=== PATIENT | female | born 1970 | race Caucasian/White ===

== ENCOUNTER 2017-03-25 12:22 | Emergency (ER) | payer SELFPAY ==
--- NOTE | 2017-03-25 13:33 | UC ---
Throat Pain/Nasal Kevin HPI - HPI Summary HPI Summary: ONE WEEK SINUS PRESSURE, PAIN, FACIAL PRESSURE, HEADACHE, SORE THROAT, COUGH - History of Current Complaint Chief Complaint: UCRespiratory Stated Complaint: RESP COMPLAINT Time Seen by Provider: 03/25/17 12:39 Hx Obtained From: Patient Onset/Duration: Gradual Onset, Lasting Weeks, Still Present Severity: Moderate Pain Intensity: 3 Pain Scale Used: 0-10 Numeric Cough: None Associated Signs & Symptoms: Positive: Hoarseness, Sinus Discomfort, Nasal Discharge - Epiglottits Risk Factors Epiglottis Risk Factors: Negative - Allergies/Home Medications Allergies/Adverse Reactions: Allergies Allergy/AdvReac Type Severity Reaction Status Date / Time No Known Allergies Allergy Verified 03/25/17 12:36 Home Medications: Home Medications Minocycline (NF) 50 mg PO DAILY 03/25/17 [History Confirmed 03/25/17] Sertraline* [Zoloft*] 125 mg PO DAILY 03/25/17 [History Confirmed 03/25/17] PMH/Surg Hx/FS Hx/Imm Hx Previously Healthy: Yes - Surgical History Surgical History: Yes Surgery Procedure, Year, and Place: ablasion, knee surgery - Family History Known Family History: Negative: Respiratory Disease - Social History Occupation: Employed Full-time Lives: With Family Alcohol Use: Occasionally Substance Use Type: None Smoking Status (MU): Never Smoked Tobacco Review of Systems Constitutional: Negative Skin: Negative Eyes: Negative ENT: Sore Throat, Sinus Congestion, Sinus Pain/Tenderness Respiratory: Cough Cardiovascular: Negative Gastrointestinal: Negative Genitourinary: Negative Motor: Negative Neurovascular: Negative Musculoskeletal: Negative Neurological: Negative Psychological: Negative All Other Systems Reviewed And Are Negative: Yes Physical Exam Triage Information Reviewed: Yes Appearance: Well-Appearing, No Pain Distress, Well-Nourished Vital Signs: Initial Vital Signs Temp 98.4 F 03/25/17 12:31 Pulse 57 03/25/17 12:31 Resp 18 03/25/17 12:31 BP 96/66 03/25/17 12:31 Pulse Ox 100 03/25/17 12:31 Vital Signs Reviewed: Yes Eye Exam: Normal ENT: Positive: Pharyngeal erythema, TM bulging, TM dull Dental Exam: Normal Neck exam: Normal Neck: Positive: Supple, Nontender, No Lymphadenopathy Respiratory Exam: Normal Respiratory: Positive: Chest non-tender, Lungs clear, Normal breath sounds, No respiratory distress, No accessory muscle use Cardiovascular Exam: Normal Cardiovascular: Positive: RRR, No Murmur, Pulses Normal Abdominal Exam: Normal Musculoskeletal Exam: Normal Musculoskeletal: Positive: Strength Intact, ROM Intact Neurological Exam: Normal Psychological Exam: Normal Skin Exam: Normal Throat Pain/Nasal Course/Dx - Differential Dx/Diagnosis Differential Diagnosis/HQI/PQRI: Pharyngitis, Sinusitis, Tonsillitis, URI Provider Diagnoses: SINUSITIS Discharge - Discharge Plan Condition: Stable Disposition: HOME Prescriptions: Amoxicillin/Clavulanate TAB* [Augmentin TAB 875*] 875 mg PO BID #20 tab Patient Education Materials: Sinusitis (ED) Ref[place]: [facility] [place] [facility] [Outside] No Primary Care Phys,NOPCP [Primary Care Provider] - Additional Instructions: PRIMARY CARE: There are four major types of clinical preventive care: immunizations, screening , behavioral counseling (sometimes referred to as lifestyle changes), and chemoprevention. All four apply throughout the life span. It is important to establish and to have access to a Primary Care Physician, not only for follow- up regrding acute and chronic problems, but also for preventative care.
== END 2017-03-25 13:11 | disposition home or self-care (01) ==
LOC: UCEAST 12:22
DX: J32.9 Chronic sinusitis, unspecified (principal)
CPT/HCPCS: 87651; 99202; G0463